=== PATIENT | male | born 1995 | race Caucasian/White ===

== ENCOUNTER 2017-11-26 21:24 | Emergency (ER) | payer BC ==
--- NOTE | 2017-11-26 21:28 | ER Report ---
History and Physical Time Seen By MD: 21:28 HPI/ROS CHIEF COMPLAINT: finger laceration, crush injury HISTORY OF PRESENT ILLNESS: This is a 22 year old male. He injured his right 3rd finger at work. Was working on a pipe, which fell downward, He reached to catch it, and slammed down. Cut on dorsal surface of his 3rd proximal phalanx. Said that he could look into it and see white material. Stiff and difficult to move. Normal sensation. Used super glue to cover and stop the bleeding. Allergies: Coded Allergies: No Known Drug Allergies (Unverified , 11/26/17) Home Meds Active Scripts Cephalexin Monohydrate (CEPHALEXIN) 500 Mg Cap, 500 MG PO Q6H, #20 CAP 0 Refills Prov:JESSICA PASTRANA MD 11/26/17 Reviewed Nurses Notes: Yes Constitutional Vital Sign - Last 24 Hours 11/26/17 11/26/17 21:29 22:43 Temp 98.7 Pulse 75 69 Resp 14 14 B/P (MAP) 121/90 109/64 (79) Pulse Ox 95 95 O2 Delivery Room Air Room Air Physical Exam General: Alert, no acute distress. Skin: about 3 cm jagged cut on 3rd finger right hand, dorsal surface proximal phalanx. Musculoskeletal: Stiffness and pain limiting his full flexion and extension, but has good strength and no sign of tendon compromise. Neuro: Normal sensation. Cardiovascular: Normal capillary refill. Medical Decision Making EKG/Imaging Imaging FINGER RIGHT 3RD DIGIT INDICATION: Compression injury to the third right finger. COMPARISON: None available FINDINGS: 3 views right finger. No acute fracture or dislocation. No bony lesion or periosteal abnormality. No appreciable degenerative changes. Previous internal fixation of fifth metacarpal of plates and screws in place without sequelae. Soft tissues are unremarkable. IMPRESSION: No acute abnormality. Report Dictated By: Jose A Fernandes at 11/26/2017 10:06 PM ED Course/Re-evaluation ED Course Procedure: Laceration Repair Verbal consent from patient after discussing repair options, risks and benefits. Wound cleaned extensively with Hibiclens and saline. Superglue forcibly removed. Anesthesia: Digital block with 1% lidocaine without epinephrine and 0.5% bupivacaine without epinephrine. Location: Dorsal surface, right middle finger, proximal phalanx. Length: about 3cm. Character: jagged. No tendon injury was identified. Wound repair: 4 interrupted 4-0 ethilon sutures. The wound repair was simple and performed by myself. Wound care instructions discussed. Sutures need to be removed in 7 days. Tetanus booster given. Cephalexin 500mg four times a day for 5 days. Decision to Disposition Date: Nov 26, 2017 Decision to Disposition Time: 22:23 Depart Departure Latest Vital Signs Vital Signs Date Time Temp Pulse Resp B/P (MAP) Pulse Ox O2 Delivery O2 Flow Rate FiO2 11/26/17 22:43 69 14 109/64 (79) 95 Room Air 11/26/17 21:29 98.7 Impression: Primary Impression: Laceration of finger, right Condition: Improved Disposition: HOME OR SELF-CARE New Scripts Cephalexin Monohydrate (CEPHALEXIN) 500 Mg Cap 500 MG PO Q6H, #20 CAP 0 Refills Prov: JESSICA PASTRANA MD 11/26/17 Patient Instructions: Finger Laceration (ED) Additional Instructions: Wound Care: Wash the wound once a day with soap and water. Dry the wound and apply a small amount of antibiotic ointment with a clean dressing. If the dressing becomes wet or dirty, repeat cleaning and dressing as above. No soaking the wound; no swimming. Stitches need to be removed in 7 days. Pain Control: Use Tylenol or ibuprofen for pain. Using and ice pack can help reduce swelling. Antibiotic: Cephalexin 500mg 4 times a day for 5 days. Problem Qualifiers Primary Impression: Laceration of finger, right Encounter type: initial encounter Finger: middle finger Damage to nail status: without damage Foreign body presence: without foreign body Qualified Codes: S61.212A - Laceration without foreign body of right middle finger without damage to nail, initial encounter JESSICA PASTRANA MD Nov 26, 2017 21:28
[2017-11-26] MEDS ORDERED: DIPHTH/TETANUS/ACEL. PERTUSSIS IM ONLY ONE (21:35)
--- NOTE | 2017-11-26 22:14 | RADIOLOGY IMAGING REPORT ---
FACILITY: [facility] - [place] PATIENT NAME: Sharon Dong : 1995 MR: [id number] V: [id number] EXAM DATE: ORDERING PHYSICIAN: JESSICA PASTRANA TECHNOLOGIST: Location: [facility] Patient: Sharon Dong : 1995 Visit/Account:[id number] Date of Sevice: 11/26/2017 FINGER RIGHT 3RD DIGIT INDICATION: Compression injury to the third right finger. COMPARISON: None available FINDINGS: 3 views right finger. No acute fracture or dislocation. No bony lesion or periosteal abno rmality. No appreciable degenerative changes. Previous internal fixation of fifth metacarpal of plate s and screws in place without sequelae. Soft tissues are unremarkable. IMPRESSION: No acute abnormality. Report Dictated By: Jose A Fernandes at 11/26/2017 10:06 PM Report E-Signed By: Jose A Fernandes at 11/26/2017 10:10 PM WSN:[id number]
[2017-11-26] MEDS ORDERED: CEPH500C24 PO (22:24)
[2017-11-26] MEDS ORDERED: CEPHALEXIN MONO 500 MG CAP PO ONE (22:35)
[2017-11-26 22:43] VITALS: BP 109/64
== END 2017-11-26 22:44 | disposition home or self-care (01) ==
LOC: ER 21:38
DX: S61.212A Laceration without foreign body of right middle finger without damage to nail, initial encounter (principal); W45.8XXA Other foreign body or object entering through skin, initial encounter; W22.8XXA Striking against or struck by other objects, initial encounter
CPT/HCPCS: 90471; 90715; 99283